=== PATIENT | male | born 1940 | race Caucasian/White ===

== ENCOUNTER 2019-03-08 07:03 | Day surgery (SDC) | payer OTHER ==
[2019-03-08] MEDS ORDERED: LIDOCAINE 2% MPF 5 ML VIAL ONE (07:23)
[2019-03-08] MEDS ORDERED: TETRACAINE HCL 0.5% 2ML OPTH ONE (07:23)
[2019-03-08] MEDS ORDERED: CYCLOPENTOLATE 1% OPTH 2 ML ONE (07:23)
[2019-03-08] MEDS ORDERED: BUPIVACAINE 0.25% PF 10 ML VIAL ONE (07:23)
[2019-03-08] MEDS ORDERED: NA CHLORIDE 0.9% 500 ML ONE (07:24)
[2019-03-08] MEDS ORDERED: PHENYLEPHRINE 10% OPTH 5ML ONE (07:24)
[2019-03-08] MEDS ORDERED: CYCLOPENTOLATE 1% OPTH 2 ML OPTH ONE ×2 (07:40→07:45)
[2019-03-08] MEDS ORDERED: PHENYLEPHRINE 10% OPTH 5ML OPTH ONE ×2 (07:40→07:45)
[2019-03-08] MEDS ORDERED: NS 0.9% VIAL 10 ML ONE (08:27)
[2019-03-08] MEDS ORDERED: EPINEPHRINE/PF 1 MG/ML AMP ONE (08:27)
[2019-03-08] MEDS ORDERED: MOXIFLOXACIN HCL 10 DROPS/ML **OR USE OPTH ONE (08:28)
[2019-03-08] MEDS ORDERED: BALANCED SALT IRRIG PLAIN 500 ML BTL IRR ONE (08:28)
[2019-03-08] MEDS ORDERED: DUOVISC 1 KIT OPTH ONE (08:28)
[2019-03-08] MEDS ORDERED: PROPOFOL 200 MG/20 ML VIAL IV ONE (08:52)
--- NOTE | 2019-03-08 09:47 | P.BOP ---
Preoperative diagnosis: Nuclear sclerotic and posterior subcapsular cataract OD Postoperative diagnosis: Same Primary procedure: Phacoemulsification with IOL OD Estimated blood loss: None Anesthesia: Local (Subtenon's infusion with anesthesia for cataract surgery) Complications: None Implants: SN60WF +21.5 Transferred to: Other (Day surgery) Condition: Good
--- NOTE | 2019-03-08 21:15 | OP ---
Date of Procedure: 03/08/2019 Surgeon: Rosaura Browne MD Anesthesiologist: 1. Diaz Ponce C.R.N.A. 2. Stiven Unger M.D. Preoperative Diagnosis: Nuclear sclerotic and posterior subcapsular cataract, OD (right eye). Operation Performed: Phacoemulsification with intraocular lens implant, right eye. Anesthesia: Per cataract surgery. Complications: None. Description Of Procedure: In day surgery, the patient was prepped with Betadine and draped. A conju nctival incision was made in the inferior nasal quadrant with Jennyfer scissors. A sub-Tenon block c onsisting of a 1:1 mixture of 2% Xylocaine and 0.25% bupivacaine was placed through the conjunctival incision with a blunt cannula. A Honan balloon was placed over the eye and the patient was transferr ed to the operating room. In the operating room the patient was prepped and draped in the usual sterile fashion for ophthalmic surgery. A lid speculum was placed in the right eye. Two paracentesis sites were made superiorly an d inferiorly in the limbal cornea. Viscoat was placed in the anterior chamber and a crescent blade w as used to make a corneal groove and tunnel, and a keratome was used to enter the anterior chamber. Provisc was placed in the anterior chamber and a 360 degree capsulotomy was performed with a cystitom e. The lens was hydrodissected with BSS and rotated freely. The lens was removed with a stop and ch op technique. An 11.24 phaco CDE was used to remove the lens. Residual cortex was removed with the irrigation and aspiration. Provisc was placed in the capsular bag. A SN60WF +21.5 lens was placed i n the capsular bag without complications. Irrigation and aspiration were used to remove residual vis coelastic. The paracentesis sites were hydrated with BSS. The wound and paracentesis sites were ins pected and found to be watertight. Vigamox 0.07 cc was placed intracamerally at the end of the proce dure. The eye was irrigated with balanced salt solution. The eye was patched with a soft cotton pat ch and Barksdale metal shield. The patient was returned to day surgery in good condition. Comments: Discharge Instructions: Mr. Noyola is discharged to home in good condition and is to follow up with Dr. Browne in the morning. BEBA/RHYS Voice ID: [id number] Report ID: [id number]
== END 2019-03-08 10:08 | disposition home or self-care (01) ==
LOC: OR 07:03
PROVIDERS: ATTEND Ophthalmology Retina Specialist
PROC: 08RJ3JZ Replacement of Right Lens with Synthetic Substitute, Percutaneous Approach (ICD-10-PCS; principal; 2019-03-08 09:00)
DX: H25.11 Age-related nuclear cataract, right eye (principal); H25.041 Posterior subcapsular polar age-related cataract, right eye; H40.10X0 Unspecified open-angle glaucoma, stage unspecified; E78.00 Pure hypercholesterolemia, unspecified; Z85.820 Personal history of malignant melanoma of skin; Z88.0 Allergy status to penicillin; Z88.8 Allergy status to other drugs, medicaments and biological substances; Z79.82 Long term (current) use of aspirin; Z83.518 Family history of other specified eye disorder; Z80.9 Family history of malignant neoplasm, unspecified
CPT/HCPCS: 66984; J2704; J0171

== ENCOUNTER 2021-12-03 12:50 | Emergency (ER) | payer OTHER ==
--- OUTSIDE RECORDS SUMMARY | 2021-12-03 12:52 | XMS REPORT | Continuity of Care Document ---
:1940 Author Organization [facility] t Address [address] [place] [address] Care Team Providers Name Role Phone PCP, PATIENT DOES NOT HAVE A Primary Care Physician Unavaila RODRIGO Weber Attending Clinician Unavailable Nurse, Pob Immunization Attending Clinician Unavailable Rodrigo Avila DO Attending Clinician Zahira PAYTON Attending Clinician Unavailable Payers Payer Name Policy Type Policy Number Effective Date Expiration Date S sissy AETJOSH MANAGED [id number] 2013 MEDICARE PPO-ANNIE 00:00:00 Problems This patient has no known problems. Allergies, Adverse Reactions, Alerts Allergy Allergy Status Severity Reaction(s) Onset Inactive Treating Comm ents Source Name Type Date Date Clinician NO KNOWN Drug Active Univers ALLERGIE Class ity of S [facility] Social History Social Habit Start Date Stop Date Quantity Comments Source Sex Assigned At [birth year] [facility] 00:00:00 00:00:00 [facility] Smoking Status Start Date Stop Date Source Unknown if ever smoked [facility] Medications This patient has no known medications. Immunizations Ordered Filled Immunization Date Status Comments Sourc e Immunization Name Name SARS-COV-2 COVID-19 2021-08-02 Completed Unive rsity of PFIZER VACCINE 00:00:00 [facility] SARS-COV-2 COVID-19 2021-01-26 Completed Unive rsity of PFIZER VACCINE 00:00:00 [facility] SARS-COV-2 COVID-19 2020-12-26 Completed Unive rsity of PFIZER VACCINE 00:00:00 [facility] Procedures Procedure Date / Time Performed Performing Clinician Yudi e SARS-COV-2 COVID-19 2021-08-02 14:58:23 Doctor Unassigned, No [facility] [place] VACCINE,0.3ML,IM Name [facility] (PFIZER) Encounters Start End Encounter Admission Attending Care Care Encounter Source Date/Time Date/Time Type Type Clinicians Facility Department ID 2021-08-02 2021-08-02 Outpatient R LIBAN [facility] [id number] Univers 10:00:00 09:55:40 MARILY [facility] 2021-08-02 2021-08-02 Imm/Inj Nurse, Adc Pob Immunization [facility] [id number] Univers 09:53:42 09:55:40 Visit Marily Avila [id number] [facility] [id number] Maddy montes Professio [phone] Ma dical [address] 2021-01-26 2021-01-26 Outpatient Claire PAYTON [facility] [id number] 2S-20 Univers 13:10:00 13:10:00 [place]ERV[place] [id number] [facility] 2021-01-26 2021-01-26 Outpatient Claire PAYTON [facility] [id number] Univers 13:10:00 13:10:00 MINERVA [facility] 2021-01-19 2021-01-19 Outpatient Claire PAYTON [facility] [id number] 2S-20 Univers 13:20:00 13:20:00 MINERVA [id number] [facility] 2021-01-19 2021-01-19 Outpatient Claire PAYTON [facility] [id number] Univers 13:20:00 13:20:00 MINERVA [facility] 2021-01-16 2021-01-16 Outpatient Claire PAYTON [facility] [id number] 2S-20 Univers 14:50:00 14:50:00 MINERVA [id number] [facility] 2020-12-26 2020-12-26 Outpatient Claire PAYTON [facility] [id number] Univers 13:30:00 13:30:00 MINERVA [facility] Results This patient has no known results.
[2021-12-03 13:21] LABS: Absolute Lymphocytes (CBC) 0.7 K/uL (0.7-4.9); Lymphocytes % 8.9 % (15.3-44.8); MPV 7.8 fL (7.6-11.3); RBC Red Blood Cell Count 4.84 M/uL (4.33-5.43)
[2021-12-03 13:23] LABS: Protime INR 1.1
--- NOTE | 2021-12-03 13:37 | RAD REPORT ---
EXAM DESCRIPTION: CT - Head Brain Wo Cont - 12/03/2021 1:25 pm CLINICAL HISTORY: SYNCOPE Headache, drowsiness COMPARISON: No comparisons TECHNIQUE: All CT scans are performed using dose optimization technique as appropriate and may inclu de automated exposure control or mA/KV adjustment according to patient size. FINDINGS: No intracranial hemorrhage, hydrocephalus or extra-axial fluid collection.No areas of brai n edema or evidence of midline shift. The paranasal sinuses and mastoids are clear. The calvarium is intact. IMPRESSION: No acute intracranial abnormality.
[2021-12-03 13:38] LABS: ALT/SGPT 17 U/L (12-78); AST/SGOT 12 U/L (15-37); Albumin 3.1 g/dL (3.4-5.0); Alkaline Phosphatase 62 U/L (45-117); BUN Blood Urea Nitrogen 22 mg/dL (7-18); Bicarbonate 26 mmol/L (21-32); Bilirubin Direct 0.1 mg/dL (0-0.2); Bilirubin Total 0.4 mg/dL (0.2-1.0); Glucose Level 124 mg/dL (74-106); Magnesium 2.3 mg/dL (1.8-2.4); NT PRO-BNP 174 pg/mL (<450); Potassium 4.2 mmol/L (3.5-5.1); Protein, Total 7.1 g/dL (6.4-8.2); Sodium Level 137 mmol/L (136-145); Troponin (Emerg Dept Use Only) < 0.02 ng/mL (0.0-0.045)
--- NOTE | 2021-12-03 14:09 | RAD REPORT ---
EXAM DESCRIPTION: RAD - Chest Single View - 12/03/2021 1:57 pm CLINICAL HISTORY: syncope Chest pain. COMPARISON: No comparisons FINDINGS: Portable technique limits examination quality. The lungs are mildly emphysematous but grossly clear. The heart is normal in size. No displaced fract ures. IMPRESSION: Mild COPD.
[2021-12-03] MEDS ORDERED: NA CHLORIDE 0.9% 1,000 ML ONE ×2 (14:41→17:37)
[2021-12-03 15:19] LABS: Urine Blood Negative (Negative); Urine Glucose Negative (Negative); Urine Protein Negative (Negative); Urine Specific Gravity 1.025 (1.005-1.030)
[2021-12-03 17:03] LABS: C-Reactive Protein 21.9 mg/L (<3.00); Ferritin 183.1 ng/mL (26-388)
[2021-12-03] MEDS ORDERED: ASPIRIN 81 MG CHEWABLE TABLET ONE (17:03)
[2021-12-03] MEDS ORDERED: FAMOTIDINE 20 MG/2 ML VIAL IV ONE (17:03)
[2021-12-03] MEDS ORDERED: ACETYLCYST 6,000 MG/30 ML VIAL ONE (17:42)
--- NOTE | 2021-12-03 18:29 | RAD REPORT ---
EXAM DESCRIPTION: US - Extrem Venous W Compress Ajit - 12/03/2021 6:22 pm CLINICAL HISTORY: PAIN Bilateral leg edema and swelling. COMPARISON: No comparisons TECHNIQUE: Real-time sonographic interrogation of the left and right lower extremity deep venous sys tems was performed. FINDINGS: Normal compressibility, flow augmentation, phasic flow and spontaneous flow is identified in both the left and right lower extremity deep venous systems. IMPRESSION: No sonographic evidence of left or right lower extremity deep venous thrombosis.
--- NOTE | 2021-12-03 19:18 | RAD REPORT ---
EXAM DESCRIPTION: CT - Chest For Pe Angio - 12/03/2021 6:33 pm CLINICAL HISTORY: Chest pain. syncope COMPARISON: No comparisons TECHNIQUE: CT angiogram of the pulmonary arteries was performed with MIP. All CT scans are performed using dose optimization technique as appropriate and may include automated exposure control or mA/KV adjustment according to patient size. FINDINGS: No evidence of pulmonary thromboembolism. No acute aortic finding demonstrated. Mild with ground-glass opacity posterior left upper lobe posterior right lung base noted, could be mi ld infiltrate. No significant pericardial or pleural fluid. No concerning bony finding. IMPRESSION: No evidence of pulmonary thromboembolism. Early/mild infiltrate possible right lung base and posterior left upper lobe.
--- NOTE | 2021-12-03 19:25 | EDPHYS ---
Physician Documentation [facility] Name: Chapin Noyola Age: 80 yrs Sex: Male : 1940 Arrival Date: 12/03/2021 Time: 12:51 Bed 27 Private MD: Opal Terrazas C ED Physician Rodrigo Chen HPI: 12/03 16:58 This 80 yrs old Male presents to ER via Ambulatory with complaints of Passed erick Out Prior To Arrival. 16:58 The patient has experienced syncope, became unresponsive, collapsed, The patient has erick experienced near-syncope. Onset: The symptoms/episode began/occurred just prior to arrival. Duration: This was a single episode, that lasted 30 second(s). Context: the episode(s) was witnessed, by family, . Associated injury: The patient did not suffer any apparent associated injury. Associated signs and symptoms: The patient has no apparent associated signs or symptoms. Current symptoms: Currently, the patient is not experiencing any symptoms. Unable to obtain HPI due to. The patient has not experienced similar symptoms in the past. 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 - Social history:: Smoking status: Patient denies any tobacco usage or history of. - Family history:: not pertinent. ROS: 16:58 Constitutional: Negative for fever, chills, and weight loss, Eyes: Negative for injury, erick pain, redness, and discharge, ENT: Negative for injury, pain, and discharge, Neck: Negative for injury, pain, and swelling, Cardiovascular: Negative for chest pain, palpitations, and edema, Respiratory: Negative for shortness of breath, cough, wheezing, and pleuritic chest pain, Abdomen/GI: Negative for abdominal pain, nausea, vomiting, diarrhea, and constipation, Back: Negative for injury and pain, : Negative for injury, bleeding, discharge, and swelling, MS/Extremity: Negative for injury and deformity, Skin: Negative for injury, rash, and discoloration, Psych: Negative for depression, anxiety, suicide ideation, homicidal ideation, and hallucinations, Allergy/Immunology: Negative for hives, rash, and allergies, Endocrine: Negative for neck swelling, polydipsia, polyuria, polyphagia, and marked weight changes, Hematologic/Lymphatic: Negative for swollen nodes, abnormal bleeding, and unusual bruising. 16:58 Neuro: Positive for syncope, near syncope, weakness. Exam: 16:58 Constitutional: This is a well developed, well nourished patient who is awake, alert, erick and in no acute distress. Head/Face: Normocephalic, atraumatic. Eyes: Pupils equal round and reactive to light, extra-ocular motions intact. Lids and lashes normal. Conjunctiva and sclera are non-icteric and not injected. Cornea within normal limits. Periorbital areas with no swelling, redness, or edema. ENT: Nares patent. No nasal discharge, no septal abnormalities noted. Tympanic membranes are normal and external auditory canals are clear. Oropharynx with no redness, swelling, or masses, exudates, or evidence of obstruction, uvula midline. Mucous membranes moist. Neck: Trachea midline, no thyromegaly or masses palpated, and no cervical lymphadenopathy. Supple, full range of motion without nuchal rigidity, or vertebral point tenderness. No Meningismus. Chest/axilla: Normal chest wall appearance and motion. Nontender with no deformity. No lesions are appreciated. Cardiovascular: Regular rate and rhythm with a normal S1 and S2. No gallops, murmurs, or rubs. Normal PMI, no JVD. No pulse deficits. Respiratory: Lungs have equal breath sounds bilaterally, clear to auscultation and percussion. No rales, rhonchi or wheezes noted. No increased work of breathing, no retractions or nasal flaring. Abdomen/GI: Soft, non-tender, with normal bowel sounds. No distension or tympany. No guarding or rebound. No evidence of tenderness throughout. Back: No spinal tenderness. No costovertebral tenderness. Full range of motion. Male : Normal genitalia with no discharge or lesions. Skin: Warm, dry with normal turgor. Normal color with no rashes, no lesions, and no evidence of cellulitis. MS/ Extremity: Pulses equal, no cyanosis. Neurovascular intact. Full, normal range of motion. Neuro: Awake and alert, GCS 15, oriented to person, place, time, and situation. Cranial nerves II-XII grossly intact. Motor strength 5/5 in all extremities. Sensory grossly intact. Cerebellar exam normal. Normal gait. Psych: Awake, alert, with orientation to person, place and time. Behavior, mood, and affect are within normal limits. 16:58 ECG was reviewed by the Attending Physician. 16:58 Musculoskeletal/extremity: ROM: no acute changes, intact in all extremities, full active range of motion, full passive range of motion, Circulation is intact in all extremities. Pulses: are normal with no appreciated deficits, Sensation intact. Compartment Syndrome exam of affected extremity: is normal. Joints: All joints appear normal with full range of motion. Weight bearing: able to fully bear weight, DVT Exam: No signs of deep vein thrombosis. no pain, no swelling, no tenderness, negative Homans' sign noted on exam, no appreciated bluish discoloration, no erythema, no increased warmth. 17:02 Musculoskeletal/extremity: Tendon exam: specific tendon testing normal through active erick and passive range of motion Calves: are non-tender, have equal circumference. Vital Signs: 13:03 BP 136 / 68; Pulse 75; Resp 16; Temp 97.6; Pulse Ox 70% ; iw 14:36 BP 140 / 83; Pulse 68; Resp 16; Pulse Ox 98% ; vg1 16:00 BP 167 / 86; Pulse 62; Resp 17; Pulse Ox 96% ; vg1 17:00 BP 168 / 88; Pulse 72; Resp 15; Pulse Ox 99% ; vg1 18:00 BP 165 / 86; Pulse 73; Resp 16; Pulse Ox 98% ; vg1 19:49 BP 155 / 94; Pulse 72; Resp 18 S; Pulse Ox 96% on R/A; as6 MDM: 14:34 Patient medically screened. erick 17:01 Differential Diagnosis: cardiac arrhythmia, cerebrovascular accident, emotional erick response, GI bleed, seizure, vasovagal episode. Data reviewed: vital signs, nurses notes, lab test result(s), EKG, radiologic studies, CT scan, plain films. Data interpreted: cardiac monitor technician: rate is 62 beats/min, rhythm is regular, Pulse oximetry: on room air is 96 %. Test interpretation: by ED physician or midlevel provider: ECG, plain radiologic studies. Counseling: I had a detailed discussion with the patient and/or guardian regarding: the historical points, exam findings, and any diagnostic results supporting the discharge/admit diagnosis, lab results, radiology results, the need for outpatient follow up, for definitive care, 12/03 13:06 Order name: Basic Metabolic Panel iw 12/03 13:06 Order name: CBC with Diff iw 12/03 13:06 Order name: LFT's iw 12/03 13:06 Order name: Magnesium; Complete Time: 16:44 iw 12/03 13:06 Order name: NT PRO-BNP; Complete Time: 16:44 iw 12/03 13:06 Order name: PT-INR; Complete Time: 16:44 iw 12/03 13:06 Order name: Troponin (emerg Dept Use Only); Complete Time: 16:44 iw 12/03 13:07 Order name: Basic Metabolic Panel; Complete Time: 16:44 EDMS 12/03 13:07 Order name: CBC with Automated Diff; Complete Time: 16:44 EDMS 12/03 13:07 Order name: Liver (Hepatic) Function; Complete Time: 16:44 EDMS 12/03 14:35 Order name: SARS-COV-2 RT PCR (Document "Date of Onset" if Symptomatic); Complete Time: erick 16:44 12/03 15:19 Order name: Urine Dipstick-Ancillary; Complete Time: 16:44 EDMS 12/03 16:14 Order name: Ferritin; Complete Time: 17:08 bd 12/03 16:14 Order name: CRP; Complete Time: 17:08 bd 12/03 13:06 Order name: CT Head Brain wo Cont; Complete Time: 16:44 iw 12/03 13:06 Order name: XRAY Chest (1 view); Complete Time: 16:44 iw 12/03 13:06 Order name: EKG; Complete Time: 13:07 iw 12/03 16:24 Order name: DD; Complete Time: 17:25 bd 12/03 17:09 Order name: CT Chest For PE Angio; Complete Time: 19:22 erick 12/03 17:09 Order name: US Extremity Venous W Compression Ajit; Complete Time: 19:22 erick 12/03 17:26 Order name: Troponin (emerg Dept Use Only): 6pm please; Complete Time: 18:30 erick 12/03 13:06 Order name: Cardiac monitoring; Complete Time: 14:58 iw 01/03 13:06 Order name: EKG - Nurse/Tech; Complete Time: 14:58 iw 12/03 13:06 Order name: IV Saline Lock; Complete Time: 14:38 iw 12/03 13:06 Order name: Labs collected and sent; Complete Time: 14:38 iw 12/03 13:06 Order name: O2 Per Protocol; Complete Time: 14:38 iw 12/03 13:06 Order name: O2 Sat Monitoring; Complete Time: 14:38 iw 12/03 14:36 Order name: Urine Dipstick-Ancillary (obtain specimen); Complete Time: 15:19 [facility] 12/03 17:09 Order name: PO challenge; Complete Time: 18:03 erick EC:58 Rate is 67 beats/min. Rhythm is regular. QRS [place] is Normal. IA interval is normal. QRS erick interval is normal. QT interval is normal. No Q waves. T waves are Normal. No ST changes noted. Clinical impression: NSR w/ Non-specific ST/T Changes and No evidence of ischemia. Interpreted by me. Reviewed by me. Administered Medications: 14:58 Drug: NS 0.9% 500 ml Route: IV; Rate: bolus; Site: left antecubital; vg1 16:08 Follow up: IV Status: Completed infusion; IV Intake: 500ml vg1 16:08 Drug: NS 0.9% 1000 ml Route: IV; Rate: 125 ml/hr; Site: left antecubital; vg1 19:51 Follow up: Response: No adverse reaction; IV Status: Completed infusion; IV Intake: as6 1000ml 17:00 Drug: Aspirin Chewable Tablet 162 mg Route: PO; vg1 18:04 Follow up: Response: No adverse reaction vg1 17:02 Drug: Pepcid (famotidine) 20 mg Route: IVP; Site: left antecubital; vg1 18:04 Follow up: Response: No adverse reaction vg1 17:50 Drug: Mucomyst - Acetylcysteine 600 mg Route: PO; vg1 19:19 Follow up: Response: No adverse reaction vg1 17:55 Drug: NS 0.9% 500 ml Route: IV; Rate: bolus; Site: left antecubital; vg1 19:51 Follow up: Response: No adverse reaction; IV Status: Completed infusion; IV Intake: as6 500ml 17:55 Drug: NS 0.9% 500 ml Route: IV; Rate: bolus; Site: left antecubital; vg1 19:52 Follow up: Response: No adverse reaction; IV Status: Completed infusion; IV Intake: as6 500ml 19:46 Drug: Zithromax (azithromycin) 500 mg Route: PO; as6 19:52 Follow up: Response: No adverse reaction as6 19:49 Drug: Rocephin (cefTRIAXone) 1 grams Route: IV; Rate: per protocol; Site: left as antecubital; 19:52 Follow up: Response: No adverse reaction; IV Status: Completed infusion; IV Intake: [id number] Disposition Summary: 12/03/21 19:24 Discharge Ordered Location: Home [facility] Problem: [facility] Symptoms: have improved erick Condition: Stable erick Diagnosis - Syncope Near erick - Weakness erick - Coronavirus infection, unspecified erick - Pneumonia due to SARS-associated coronavirus erick Followup: erick - With: - When: 2 - 3 days - Reason: Recheck today's complaints, Continuance of care, Re-evaluation by your physician Discharge Instructions: - Discharge Summary Sheet erick - Near-Syncope erick - Syncope erick - Upper Respiratory Infection, Adult erick - Weakness erick - Community-Acquired Pneumonia, Adult erick - Fatigue erick - Near-Syncope, [id number] erick - Upper Respiratory Infection, Adult, Gzvu-sr-Yufl erick - Syncope, Gzqz-[id number]-Bbgf erick - Weakness, Rpqf-ml-Tbik erick - Aspirin and Your Heart erick - COVID-19 erick - COVID-19 Frequently Asked Questions [facility] - 10 Things You Can Do to Manage Your COVID-19 Symptoms at Home - [facility] erick - COVID-19: Quarantine vs. Isolation - [facility] Forms: - Medication Reconciliation Form [facility] - Thank You Letter [facility] - Antibiotic Education [facility] - Prescription Opioid Use [facility] Prescriptions: - Pepcid 20 mg Oral Tablet - take 1 tablet by ORAL route every 12 hours for 30 days; 60 tablet; Refills: 0, [facility] Product Selection Permitted - Zofran 4 mg Oral Tablet - take 1 tablet by ORAL route every 12 hours As needed; 20 tablet; Refills: 0, [facility] Product Selection Permitted - Zithromax 500 mg Oral Tablet - take 1 tablet by ORAL route once daily for 4 days; 4 tablet; Refills: 0, [facility] Product Selection Permitted - albuterol sulfate 90 mcg/actuation Inhalation HFA aerosol inhaler - inhale 2 puff by INHALATION route every 4-6 hours; 1 Pump; Refills: 0, Product erick Selection Permitted - ivermectin 3 mg Oral tablet - take 5 tablet by ORAL route once daily 15 mg po daily on days 1, 3 and 5; 15 erick tablet; Refills: 0, Product Selection Permitted - Singulair 10 mg Oral Tablet - take 1 tablet by ORAL route At bedtime; 30 tablet; Refills: 0, Product erick Selection Permitted Signatures: Dispatcher [employer] Rodrigo Estrella MD MD cha Williams, Irene RN Waleska Boland RN RN vg1 Giorgi Brown RN RN as6 Corrections: (The following items were deleted from the chart) 13:05 13:03 PMHx: None; [facility]
--- NOTE | 2021-12-03 19:25 | ER ---
Nurse's Notes [facility] Name: Chapin Noyola Age: 80 yrs Sex: Male : 1940 Arrival Date: 12/03/2021 Time: 12:51 Bed 27 Private MD: Opal Terrazas C Diagnosis: Syncope Near;Weakness;Coronavirus infection, unspecified;Pneumonia due to SARS-associated coronavirus Presentation: 12/03 13:01 Chief complaint: Patient states: I passed out in the kitchen three times, was getting iw something out of the microwave, has never happened before , dropped to his knees and then passed out, does not remember , denies pain at this time, denies dizziness, not on blood thinners. Coronavirus screen: At this time, the client does not indicate any symptoms associated with coronavirus-19. Ebola Screen: Patient negative for fever greater than or equal to 101.5 degrees Fahrenheit, and additional compatible Ebola Virus Disease symptoms Patient denies exposure to infectious person. Patient denies travel to an Ebola-affected area in the 21 days before illness onset. No symptoms or risks identified at this time. Initial Sepsis Screen: Does the patient meet any 2 criteria? No. Patient's initial sepsis screen is negative. Does the patient have a suspected source of infection? No. Patient's initial sepsis screen is negative. Risk Assessment: Do you want to hurt yourself or someone else? Patient reports no desire to harm self or others. Onset of symptoms was December 03, 2021. 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 - Social history:: Smoking status: Patient denies any tobacco usage or history of. - Family history:: not pertinent. Screenin:37 Abuse screen: Denies threats or abuse. Nutritional screening: No deficits noted. vg1 Tuberculosis screening: No symptoms or risk factors identified. Fall Risk No fall in past 12 months (0 pts). No secondary diagnosis (0 pts). IV access (20 points). Ambulatory Aid- None/Bed Rest/Nurse Assist (0 pts). Gait- Normal/Bed Rest/Wheelchair (0 pts) Mental Status- Oriented to own ability (0 pts). Total Queen Fall Scale indicates No Risk (0-24 pts). Assessment: 14:35 General: Appears in no apparent distress. comfortable, Behavior is calm, cooperative. vg1 Pain: Denies pain. Neuro: Level of Consciousness is awake, alert, obeys commands, Oriented to person, place, time, situation. Cardiovascular: Denies chest pain, shortness of breath, Patient's skin is warm and dry. Respiratory: Airway is patent Respiratory effort is even, unlabored, Denies shortness of breath. GI: No signs and/or symptoms were reported involving the gastrointestinal system. : No signs and/or symptoms were reported regarding the genitourinary system. EENT: No signs and/or symptoms were reported regarding the EENT system. Derm: Skin is intact, is healthy with good turgor. Musculoskeletal: Circulation, motion, and sensation intact. 15:30 Reassessment: Patient appears in no apparent distress at this time. No changes from vg1 previously documented assessment. Patient and/or family updated on plan of care and expected duration. Pain level reassessed. Patient is alert, oriented x 3, equal unlabored respirations, skin warm/dry/pink. 17:09 Reassessment: Patient appears in no apparent distress at this time. No changes from vg1 previously documented assessment. Patient and/or family updated on plan of care and expected duration. Pain level reassessed. Patient is alert, oriented x 3, equal unlabored respirations, skin warm/dry/pink. Patient denies pain at this time. 18:05 Reassessment: Patient appears in no apparent distress at this time. No changes from vg1 previously documented assessment. Patient is alert, oriented x 3, equal unlabored respirations, skin warm/dry/pink. 19:01 Reassessment: Patient appears in no apparent distress at this time. Patient and/or vg1 family updated on plan of care and expected duration. Pain level reassessed. Patient is alert, oriented x 3, equal unlabored respirations, skin warm/dry/pink. Patient denies pain at this time. 19:49 Reassessment: Patient appears in no apparent distress at this time. as6 Vital Signs: 13:03 BP 136 / 68; Pulse 75; Resp 16; Temp 97.6; Pulse Ox 70% ; iw 14:36 BP 140 / 83; Pulse 68; Resp 16; Pulse Ox 98% ; vg1 16:00 BP 167 / 86; Pulse 62; Resp 17; Pulse Ox 96% ; vg1 17:00 BP 168 / 88; Pulse 72; Resp 15; Pulse Ox 99% ; vg1 18:00 BP 165 / 86; Pulse 73; Resp 16; Pulse Ox 98% ; vg1 19:49 BP 155 / 94; Pulse 72; Resp 18 S; Pulse Ox 96% on R/A; as6 ED Course: 12:51 Patient arrived in ED. as 12:51 Opal Terrazas MD is Private Physician. as 13:03 Triage completed. iw 13:05 Arm band placed on. iw 13:17 Inserted saline lock: 22 gauge in left antecubital area, using aseptic technique. iw 13:25 CT Head Brain wo Cont In Process Unspecified. EDMS 13:57 XRAY Chest (1 view) In Process Unspecified. EDMS 14:34 Rodrigo Chen MD is Attending Physician. erick 14:35 Waleska Brock RN is Primary Nurse. vg1 14:37 Patient has correct armband on for positive identification. Placed in gown. Bed in low vg1 position. Call light in reach. Side rails up X 1. Adult w/ patient. 14:37 No provider procedures requiring assistance completed. vg1 15:00 COVID swab sent to lab. vg1 18:22 US Extremity Venous W Compression Ajit In Process Unspecified. EDMS 18:33 CT Chest For PE Angio In Process Unspecified. EDMS 19:15 Primary Nurse role handed off by Waleska Brock, RN mw2 19:24 Opal Terrazas MD is Referral Physician. erick 19:29 Giorgi Brown RN is Primary Nurse. as6 20:14 IV discontinued, intact, bleeding controlled, No redness/swelling at site. Pressure as6 dressing applied. Administered Medications: 14:58 Drug: NS 0.9% 500 ml Route: IV; Rate: bolus; Site: left antecubital; vg1 16:08 Follow up: IV Status: Completed infusion; IV Intake: 500ml vg1 16:08 Drug: NS 0.9% 1000 ml Route: IV; Rate: 125 ml/hr; Site: left antecubital; vg1 19:51 Follow up: Response: No adverse reaction; IV Status: Completed infusion; IV Intake: as6 1000ml 17:00 Drug: Aspirin Chewable Tablet 162 mg Route: PO; vg1 18:04 Follow up: Response: No adverse reaction vg1 17:02 Drug: Pepcid (famotidine) 20 mg Route: IVP; Site: left antecubital; vg1 18:04 Follow up: Response: No adverse reaction vg1 17:50 Drug: Mucomyst - Acetylcysteine 600 mg Route: PO; vg1 19:19 Follow up: Response: No adverse reaction vg1 17:55 Drug: NS 0.9% 500 ml Route: IV; Rate: bolus; Site: left antecubital; vg1 19:51 Follow up: Response: No adverse reaction; IV Status: Completed infusion; IV Intake: as6 500ml 17:55 Drug: NS 0.9% 500 ml Route: IV; Rate: bolus; Site: left antecubital; vg1 19:52 Follow up: Response: No adverse reaction; IV Status: Completed infusion; IV Intake: as6 500ml 19:46 Drug: Zithromax (azithromycin) 500 mg Route: PO; as6 19:52 Follow up: Response: No adverse reaction as6 19:49 Drug: Rocephin (cefTRIAXone) 1 grams Route: IV; Rate: per protocol; Site: left as6 antecubital; 19:52 Follow up: Response: No adverse reaction; IV Status: Completed infusion; IV Intake: [id number] Intake: 16:08 IV: 500ml; Total: 500ml. vg1 19:51 IV: 1000ml; Total: 1500ml. as6 19:51 IV: 500ml; Total: 2000ml. as6 19:52 IV: 500ml; Total: 2500ml. as6 19:52 IV: 50ml; Total: 2550ml. as6 Outcome: 19:24 Discharge ordered by . erick 20:14 Discharged to home via wheelchair, with family. as6 20:14 Condition: stable 20:14 Discharge instructions given to patient, Instructed on discharge instructions, follow up and referral plans. medication usage, Demonstrated understanding of instructions, follow-up care, medications, Prescriptions given X 6 20:15 Patient left the ED. as6 Signatures: Dispatcher [employer] Rodrigo Estrella MD MD cha Martinez, Amelia as Williams, Irene, MELO RN iw Jesse Cooley 2 Waleska Brock RN RN vg1 Giorgi Brown RN RN as6 Corrections: (The following items were deleted from the chart) 13:05 13:03 PMHx: None; [facility]
[2021-12-03] MEDS ORDERED: CEFTRIAXONE 1000 MG/VIAL ONE (19:42)
[2021-12-03] MEDS ORDERED: NA CHLORIDE 0.9% 50 ML ONE (19:42)
[2021-12-03] MEDS ORDERED: AZITHROMYCIN 250 MG TAB ONE (19:42)
[2021-12-03 20:21] VITALS: TEMP 97.6
[2021-12-03 20:28] VITALS: BP 155/94; O2SAT 96
--- NOTE | 2021-12-04 11:17 | EKG ---
Test Date: 2021-12-03 Test Time: 14:47:35 Fitting Room Maintenance Mechanic: RUBEN MEASUREMENT RESULTS: Intervals: Rate: 67 NH: 138 QRSD: 124 QT: 420 QTc: 443 Barre: P: 64 NH: 138 QRS: 18 T: 41 INTERPRETIVE STATEMENTS: Normal sinus rhythm Right bundle branch block Abnormal ECG Compared to ECG 07/30/2003 10:33:00 Right bundle-branch block now present Sinus bradycardia no longer present Electronically Signed On 12-04-21 11:14:16 FISCAL SERVICES DIRECTOR by Parish Garcia
== END 2021-12-03 20:15 | disposition home or self-care (01) ==
LOC: ER 12:50
DX: U07.1 COVID-19 (principal); J12.82 Pneumonia due to coronavirus disease 2019; R53.1 Weakness; Z79.82 Long term (current) use of aspirin
CPT/HCPCS: 96361; 93005; 85025; 80048; 36415; 83735; 85610; 85379; 80076; 81003; 84484 ×2; 82728; 83880; 86140; 70450; 71275; 71045; 93970; 96375; 96374; 99284; U0003; Q9967; J7030 ×2